=== PATIENT | female | born 1945 | race Caucasian/White ===

== ENCOUNTER 2018-10-20 12:02 | Emergency (ER) | payer MEDICARE, OTHER ==
[~2018-10-20] VITALS: Ht 162.6 cm; Wt 81.7 kg
[~2018-10-20 12:02] MED LIST: ATOR10 PO; Adult Low Dose81 MG PO; CHOLESTERAL MED; CLIN300 PO; Furosemide20 MG PO; HTN MED; HYDACE5 PO; IBUP600 PO; IBUP800 PO; LISHYD2025 PO; LORA.5; LORA10; OMEP20ER; POTCHL20ER PO; PRED20 PO; Pravastatin Sod40 MG PO; SERT25; Tussionex Penn480 ML PO; Ventolin/Prove6.7 GM INH; ZOLP10; ZOLP5 PO; Zithromax250 MG PO
[2018-10-20] MEDS ORDERED: Roxicodone5 MG PO (14:12)
== END 2018-10-20 14:43 | disposition home or self-care (01) ==
LOC: ER 12:02
DX: S00.83XA Contusion of other part of head, initial encounter (principal); S70.01XA Contusion of right hip, initial encounter; S40.021A Contusion of right upper arm, initial encounter; I10 Essential (primary) hypertension; E78.5 Hyperlipidemia, unspecified; W22.8XXA Striking against or struck by other objects, initial encounter
CPT/HCPCS: 73502; 99283-25

== ENCOUNTER 2021-12-19 09:02 | Inpatient (IN) | payer MEDICARE, OTHER ==
[~2021-12-19] VITALS: Ht 165.1 cm; Wt 87.0 kg
[~2021-12-19 09:02] MED LIST changes: +Roxicodone5 MG PO
[2021-12-19 09:26] LABS: BASOPHILS ABSOLUTE AUTO 0.09 K/mm3 (0.00-0.23); BASOPHILS PERCENT AUTO 1 % (0-2); EOSINOPHILS ABSOLUTE AUTO 0.06 K/mm3 (0.00-0.68); EOSINOPHILS PERCENT AUTO 1 % (0-6); Hematocrit 46.3 % (33.0-51.0); Hemoglobin 16.4 g/dL (11.5-16.0); IMMATURE GRAN ABSOLUTE AUTO 0.04 K/mm3 (0.00-0.10); IMMATURE GRAN PERCENT AUTO 1 % (0-1); LYMPHOCYTES ABSOLUTE AUTO 1.25 K/mm3 (0.84-5.20); LYMPHOCYTES PERCENT AUTO 15 % (21-46); MONOCYTES ABSOLUTE AUTO 0.48 K/mm3 (0.16-1.47); MONOCYTES PERCENT AUTO 6 % (4-13); Mean Corpuscular HGB 34.8 pg (26.0-34.0); Mean Corpuscular HGB Conc 35.4 g/dL (31.5-36.5); Mean Corpuscular Volume 98 fL (80-100); Mean Platelet Volume 10.7 fL (9.1-12.4); NEUTROPHILS PERCENT AUTO 77 % (41-73); Platelet Count 198 K/mm3 (150-400); RDW Standard Deviation 43.6 fL (35.1-46.3); Red Blood Cell Count 4.71 M/mm3 (3.80-5.20); White Blood Cell Count 8.32 K/mm3 (4.00-11.30)
[2021-12-19 09:36] LABS: Alanine Aminotransfer (ALT/SGP 44 U/L (12-78); Albumin, Blood 4.4 g/dL (3.4-5.0); Albumin/Globulin Ratio 1.1 (0.8-1.8); Alk Phos 101 U/L (50-136); Anion Gap 10 mmol/L (6-16); Aspartate Aminotrans (AST/SGOT 102 U/L (12-37); Bilirubin, Total 0.8 mg/dL (0.1-1.0); Blood Urea Nitrogen 12 mg/dL (8-24); Bun/Creatinine Ratio 16.2 (12.0-20.0); CHOL/HDL RATIO 2.6; CO2, Blood 24 mmol/L (21-32); Calcium, Blood 10.2 mg/dL (8.5-10.1); Chloride, Blood 105 mmol/L (98-108); Cholesterol 277 mg/dL (50-200); Creatinine, Blood 0.74 mg/dL (0.40-1.00); Globulin, Blood 4.1 g/dL (2.2-4.0); Glomerular Filtration Rate 84 (60-); Glucose, Blood 114 mg/dL (70-99); HDL Cholesterol 107 mg/dL (>39); LDL/HDL RATIO 1.4; Low Density Lipoprotein Chol 153 mg/dL (0-110); Magnesium, Blood 1.5 mg/dL (1.6-2.4); Potassium, Blood 3.6 mmol/L (3.5-5.5); Sodium, Blood 139 mmol/L (136-145); Total Protein, Blood 8.5 g/dL (6.4-8.2); Triglycerides 87 mg/dL (30-160); Very Low Density Lipoprot Chol 17 mg/dL (6-32)
[2021-12-19] MEDS ORDERED: PILO5 PO (10:06)
[2021-12-19] MEDS ORDERED: POTA8 PO (10:07)
--- NOTE | 2021-12-19 13:51 | NUR ---
PT ARRIVED TO ICU BED 2 @ 1125, DENIES ANY PAIN AT ALL. RIGHT GROIN SITE WITH SMALL SQUARE SOAKED UNDER TRANSPARENT DRESSING, LEAKING INTO FOLD, PRESSURE HELD, DRESSING CHANGED AFTER 10 MINUTES OF PRESSURE HELD. RIGHT WRIST WITH TR BAND IN PLACE, 14ML, SITE C/D/I. PT REQUESTS SOME ICE CREAM, SHERBET GIVEN. IN TO VISIT, PT ASKS TO TAKE A NAP. MEDICATIONS, EKG AND LAB ORDERED, PT NOT ABLE TO REST. AT THE 2 HOUR BUFFY PT'S HEAD IS ELEVATED 15 DEGREES PER ORDERS. ADMISSION COMPLETED WITH ASSISTANCE OF PATIENT. CONTINUES WITHOUT PAIN AT THIS TIME. RIGHT AC PIV WITH MAGNESIUM INFUSING PER ORDERS.
--- NOTE | 2021-12-19 16:11 | NUR ---
GROIN SITE DRESSING CHANGED AGAIN PER REQUEST BY . THE SANDBAG HAS BEEN IN PLACE FOR ABOUT 1 HOUR. PT DENIES ANY PAIN OR TENDERNESS AT SITE, NO HEMATOMA OR SWELLING NOTED. RIGHT WRIST WITH TR BAND, AIR REMOVED OVER THE LAST 2 HOURS, SITE C/D/I. PT CONTINUES TO DENY ANY CHEST PAIN. MAGNESIUM CONT TO INFUSE.
--- NOTE | 2021-12-19 16:47 | NUR ---
TR BAND REMOVED AT 1630, WRIST SITE, CLEAN DRY AND INTACT. OPSITE DRESSING APPLIED. RIGHT GROIN SITE CONTINUES TO OOZE, AFTER 1600 DRESSING CHANGE. PT USED BEDPAN, LARGE VOID OVERFILLED BEDPAN, UNMEASURED. ZACHERY GARBER TO HOLD MANUAL PRESSURE FOR CONTINUED OOZING. PT REMAINS PAIN FREE.
--- NOTE | 2021-12-19 17:32 | NUR ---
MADE ROUNDS WHILE JCARLOS WAS HOLDING PRESSURE. HE MAINTAINS THAT PT IS ABLE TO BE TRANSFERRED TO PCU ON TELE. SHE CONTINUES TO BE WITHOUT PAIN AND IS LOOKING FORWARD TO BEING ABLE TO STAND UP IN THE ROOM AND MOVE INDEPENDENTLY. HAS RETURNED WITH SOME OF HER BELONGINGS, (PHONE, GLASSES, EYE DROPS, AND GOWN). MAGNESIUM CONTINUES INFUSING.
[2021-12-20 03:32] LABS: BASOPHILS ABSOLUTE AUTO 0.07 K/mm3 (0.00-0.23); BASOPHILS PERCENT AUTO 1 % (0-2); EOSINOPHILS ABSOLUTE AUTO 0.22 K/mm3 (0.00-0.68); EOSINOPHILS PERCENT AUTO 3 % (0-6); Hematocrit 41.1 % (33.0-51.0); Hemoglobin 14.8 g/dL (11.5-16.0); IMMATURE GRAN ABSOLUTE AUTO 0.04 K/mm3 (0.00-0.10); IMMATURE GRAN PERCENT AUTO 1 % (0-1); LYMPHOCYTES ABSOLUTE AUTO 0.94 K/mm3 (0.84-5.20); LYMPHOCYTES PERCENT AUTO 11 % (21-46); MONOCYTES ABSOLUTE AUTO 0.89 K/mm3 (0.16-1.47); MONOCYTES PERCENT AUTO 10 % (4-13); Mean Corpuscular HGB 34.6 pg (26.0-34.0); Mean Corpuscular Volume 96 fL (80-100); NEUTROPHILS ABSOLUTE AUTO 6.67 K/mm3 (1.96-9.15); NEUTROPHILS PERCENT AUTO 76 % (41-73); RDW Coefficient Variation 12.2 % (11.7-14.2); RDW Standard Deviation 42.6 fL (35.1-46.3); Red Blood Cell Count 4.28 M/mm3 (3.80-5.20); White Blood Cell Count 8.83 K/mm3 (4.00-11.30)
[2021-12-20 03:35] LABS: Mean Platelet Volume 10.7 fL (9.1-12.4); Platelet Count 145 K/mm3 (150-400)
[2021-12-20 03:45] LABS: Bun/Creatinine Ratio 17.4 (12.0-20.0); Calcium, Blood 8.9 mg/dL (8.5-10.1); Creatinine, Blood 0.63 mg/dL (0.40-1.00); Potassium, Blood 3.6 mmol/L (3.5-5.5)
--- NOTE | 2021-12-20 05:09 | NUR ---
SHIFT SUMMARY PATIENT IS ALERT AND ORIENTED X4. 02 SATS >95% ON RA. HR SR 70s, BP STABLE. DENIES CP/PRESSURE THROUGH THE NIGHT. RIGHT RADIAL SITE WITH SCANT AMOUNT OF BLOOD, TEGADERM AND ARM BOARD IN PLACE, NO HEMATOMA. RIGHT GROIN WITH CORAZON DRESSING IN PLACE, SOME BLLEDING, OUTLINED AND UNCHANGED FOR LAST 6 HOURS. NO HEMATOMA AROUND SITE. UP TO TOILET, SBA. REPOSITIONS SELF IN BED. CALL LIGHT IN REACH.
--- NOTE | 2021-12-20 09:44 | NUR ---
ASSUMED CARE OF XIN AT 0700, UPON VIEWING OF THE RIGHT GROIN SITE, NO EVIDENCE OF LEAKING PAST THE DRESSING, SLIGHT OOZING CONTINUES. THE RIGHT WRIST IS C/D/I, ARM BOARD IN PLACE TO REMIND TO NOT LIFT ANYTHING WITH THAT WRIST. SHE CONTINUES TO DENY ANY CHEST PAIN OR DISCOMFORT, BREATHING IS EASY AND NON LABORED. BP REMAINS SLIGHTLY ELEVATED, AM MEDS GIVEN INCLUDING BLOOD PRESSURE MEDS. PT REALLY WOULD LIKE TO GO HOME TODAY. IN TO VISIT.
--- NOTE | 2021-12-20 14:31 | NUR ---
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 PT HAS BEEN INDEPENDENT IN ROOM, WITHOUT ANY PAIN. NO ECTOPY NOTED.
--- NOTE | 2021-12-20 15:34 | NUR ---
ECHO COMPLETED AND PT SAID SHE IS READY FOR A NAP, SHE IS STILL HOPING TO GO HOME. FEELS LIKE SHE HASN'T SLEPT MUCH. OTHERWISE, NO COMPLAINTS.
--- NOTE | 2021-12-20 15:57 | NUR ---
HAS DECIDED TO LET PATIENT BE DISCHARGED. SHE IS VERY HAPPY ABOUT THAT. WILL GET THE PAPERWORK COMPLETED.
[2021-12-20] MEDS ORDERED: ATOR80 PO (16:36)
[2021-12-20] MEDS ORDERED: ASPI81CH PO (16:36)
[2021-12-20] MEDS ORDERED: Prinivil10 MG PO (16:37)
[2021-12-20] MEDS ORDERED: CLOP75 PO (16:37)
[2021-12-20] MEDS ORDERED: METO50 PO (16:38)
[2021-12-20] MEDS ORDERED: MAGNESIUM OXID500 MG PO (16:38)
--- NOTE | 2021-12-20 17:04 | NUR ---
PT VERY EAGER FOR DISCHARGE. SHE WAS DRESSED AND STANDING AT THE DESK AWAITING HER PAPERWORK WHEN HER ARRIVED. SHE WAS GIVEN HER PAPERWORK TO READ THROUGH PRESCRIPTIONS WERE CALLED TO JUAN C PEREIRA. ARRIVED AND SHE ASKED HIM TO GET THE CAR, SHE TOOK THE WHEELCHAIR AND WAS DISCHARGED TO THE CARE OF HER , WHO WAS DRIVING AT 1700.
--- NOTE | 2021-12-21 09:47 | NUR ---
PT CALLED AND STATED [facility] DID NOT HAVE RX'S TO RADIATION OFFICER. DISCHARGE MEDICATION RECONCILLIATION RE-PRINTED AND REFAXED TO [facility], [facility] CALLED AND CONFIRMED THAT THEY RECEIVED THE RX'S AND WILL HAVE THEM READY FOR THE PT WITHIN THE HOUR. PT CALLED BACK AND NOTIFIED THAT RX'S WILL BE READY WITHIN THE HOUR AT [facility].
== END 2021-12-20 17:00 | disposition home or self-care (01) | DRG 247 ==
LOC: ER 09:02 → ICUE 09:10 → ICUW 09:10 → ICUE 09:41
PROVIDERS: Emergency Medicine; ADMIT Internal Medicine Cardiovascular Disease
PROC: 027034Z Dilation of Coronary Artery, One Artery with Drug-eluting Intraluminal Device, Percutaneous Approach (ICD-10-PCS; principal; 2021-12-19)
PROC: B2111ZZ Fluoroscopy of Multiple Coronary Arteries using Low Osmolar Contrast (ICD-10-PCS; 2021-12-19)
PROC: B24BZZ3 Ultrasonography of Heart with Aorta, Intravascular (ICD-10-PCS; 2021-12-19)
PROC: 4A023N7 Measurement of Cardiac Sampling and Pressure, Left Heart, Percutaneous Approach (ICD-10-PCS; 2021-12-19)
PROC: B2151ZZ Fluoroscopy of Left Heart using Low Osmolar Contrast (ICD-10-PCS; 2021-12-19)
DX: I21.19 ST elevation (STEMI) myocardial infarction involving other coronary artery of inferior wall (principal); I10 Essential (primary) hypertension; E78.5 Hyperlipidemia, unspecified; G89.29 Other chronic pain; I71.2 Thoracic aortic aneurysm, without rupture; E83.42 Hypomagnesemia; F10.20 Alcohol dependence, uncomplicated; M54.50 Low back pain, unspecified; Z85.3 Personal history of malignant neoplasm of breast; Z90.12 Acquired absence of left breast and nipple; Z98.49 Cataract extraction status, unspecified eye; Z88.0 Allergy status to penicillin; Z88.6 Allergy status to analgesic agent; Z79.82 Long term (current) use of aspirin; Z79.899 Other long term (current) drug therapy
CPT/HCPCS: 36415; 76937; 80048; 80053; 80061; 83735; 84484; 85025; 85347; 86850; 86900; 86901; 93005; 93010; 93458; 96374; 99152; 99153; 99291-25; A9270; C1725; C1760; C1769; C1874; C1887; C1894; C8929; C9606; J1644; J2250; J3010; J3475; J7030; J7040; Q9957; Q9967

== ENCOUNTER 2021-12-29 15:48 | Emergency (ER) | payer MEDICARE, OTHER ==
[~2021-12-29] VITALS: Ht 165.1 cm; Wt 81.7 kg
[~2021-12-29 15:48] MED LIST changes: +ASPI81CH PO; +ATOR80 PO; +CLOP75 PO; +MAGNESIUM OXID500 MG PO; +METO50 PO; +PILO5 PO; +POTA8 PO; +Prinivil10 MG PO
== END 2021-12-29 18:40 | disposition home or self-care (01) ==
LOC: ER 15:48
DX: R53.1 Weakness (principal); M54.9 Dorsalgia, unspecified; R20.2 Paresthesia of skin; W18.39XA Other fall on same level, initial encounter; I10 Essential (primary) hypertension; E78.5 Hyperlipidemia, unspecified; I25.2 Old myocardial infarction; Z95.5 Presence of coronary angioplasty implant and graft; Z88.0 Allergy status to penicillin; Z88.5 Allergy status to narcotic agent
CPT/HCPCS: 72100; 99284-25

== ENCOUNTER 2022-02-14 09:53 | Day surgery (SDC) | payer MEDICARE, OTHER ==
[~2022-02-14] VITALS: Ht 165.1 cm; Wt 77.4 kg
--- NOTE | 2022-02-14 12:14 | NUR ---
02/14/22 1214 LISANDRA HEARD PT C/O 12/22 PAIN WHEN MOVING FROM BED TO WALKER. PT WANTED A WC OUT TO CAR. PT WAS AT BASELINE PAIN AT [place].
== END 2022-02-14 12:12 | disposition home or self-care (01) ==
LOC: ORSCSDS 09:53
PROVIDERS: Anesthesiology
PROC: 3E0R33Z Introduction of Anti-inflammatory into Spinal Canal, Percutaneous Approach (ICD-10-PCS; principal; 2022-02-14 11:00)
DX: M96.1 Postlaminectomy syndrome, not elsewhere classified (principal); M54.16 Radiculopathy, lumbar region; M54.50 Low back pain, unspecified; M48.061 Spinal stenosis, lumbar region without neurogenic claudication; I10 Essential (primary) hypertension; E78.00 Pure hypercholesterolemia, unspecified; I25.10 Atherosclerotic heart disease of native coronary artery without angina pectoris; I25.2 Old myocardial infarction; Z79.01 Long term (current) use of anticoagulants; Z79.82 Long term (current) use of aspirin; Z79.899 Other long term (current) drug therapy
CPT/HCPCS: J1040; J2001; J2704

== ENCOUNTER 2022-03-25 10:14 | Day surgery (SDC) | payer MEDICARE, OTHER ==
[~2022-03-25] VITALS: Ht 165.1 cm; Wt 76.6 kg
== END 2022-03-25 11:11 | disposition home or self-care (01) ==
LOC: ORSCSDS 10:14
PROVIDERS: Anesthesiology
PROC: 3E0R33Z Introduction of Anti-inflammatory into Spinal Canal, Percutaneous Approach (ICD-10-PCS; principal; 2022-03-25 11:15)
DX: M96.1 Postlaminectomy syndrome, not elsewhere classified (principal); M54.16 Radiculopathy, lumbar region; I10 Essential (primary) hypertension; E78.00 Pure hypercholesterolemia, unspecified; I25.10 Atherosclerotic heart disease of native coronary artery without angina pectoris; Z79.82 Long term (current) use of aspirin; Z79.899 Other long term (current) drug therapy
CPT/HCPCS: J1040

== ENCOUNTER 2022-07-30 09:16 | Emergency (ER) | payer MEDICARE, OTHER ==
[~2022-07-30] VITALS: Ht 165.1 cm; Wt 72.6 kg
[2022-07-30] MEDS ORDERED: CYCL10 PO (09:55)
[2022-07-30] MEDS ORDERED: OXAYDO5 M1 PO (09:58)
[2022-07-30 10:18] LABS: BASOPHILS ABSOLUTE AUTO 0.04 K/mm3 (0.00-0.23); BASOPHILS PERCENT AUTO 1 % (0-2); EOSINOPHILS ABSOLUTE AUTO 0.02 K/mm3 (0.00-0.68); EOSINOPHILS PERCENT AUTO 0 % (0-6); Hematocrit 26.5 % (33.0-51.0); Hemoglobin 8.8 g/dL (11.5-16.0); IMMATURE GRAN ABSOLUTE AUTO 0.03 K/mm3 (0.00-0.10); IMMATURE GRAN PERCENT AUTO 0 % (0-1); LYMPHOCYTES PERCENT AUTO 10 % (21-46); MONOCYTES ABSOLUTE AUTO 0.98 K/mm3 (0.16-1.47); MONOCYTES PERCENT AUTO 11 % (4-13); Mean Corpuscular HGB 35.2 pg (26.0-34.0); Mean Corpuscular HGB Conc 33.2 g/dL (31.5-36.5); Mean Corpuscular Volume 106 fL (80-100); Mean Platelet Volume 10.1 fL (9.1-12.4); NEUTROPHILS ABSOLUTE AUTO 6.68 K/mm3 (1.96-9.15); NEUTROPHILS PERCENT AUTO 77 % (41-73); Platelet Count 188 K/mm3 (150-400); RDW Coefficient Variation 11.9 % (11.7-14.2); RDW Standard Deviation 45.8 fL (35.1-46.3); White Blood Cell Count 8.65 K/mm3 (4.00-11.30)
[2022-07-30 10:37] LABS: Albumin, Blood 2.8 g/dL (3.4-5.0); Albumin/Globulin Ratio 0.7 (0.8-1.8); Bilirubin, Total 1.2 mg/dL (0.1-1.0); Bun/Creatinine Ratio 16.9 (12.0-20.0); Calcium, Blood 9.8 mg/dL (8.5-10.1); Creatinine, Blood 0.53 mg/dL (0.40-1.00); Globulin, Blood 3.8 g/dL (2.2-4.0); Potassium, Blood 3.3 mmol/L (3.5-5.5); Total Protein, Blood 6.6 g/dL (6.4-8.2)
[2022-07-30] MEDS ORDERED: NIAC500 PO (10:41)
[2022-07-30] MEDS ORDERED: OMEP20ER PO (10:41)
[2022-07-30] MEDS ORDERED: Acetaminophen650 M1 PO (10:41)
[2022-07-30] MEDS ORDERED: Acerola C500 MG PO (10:42)
[2022-07-30] MEDS ORDERED: ZYRTEC10 M2 PO (10:43)
[2022-07-30 12:52] LABS: Influenza A, PCR NEGATIVE (NEGATIVE); Influenza B, PCR NEGATIVE (NEGATIVE); Resp Syncytial Virus, PCR NEGATIVE (NEGATIVE); SARS-Cov-2 (COVID-19) PCR, MMC NEGATIVE (NEGATIVE)
== END 2022-07-31 17:22 ==
LOC: ER 09:16
PROVIDERS: Emergency Medicine
DX: G89.18 Other acute postprocedural pain (principal); I10 Essential (primary) hypertension; E78.5 Hyperlipidemia, unspecified; I25.2 Old myocardial infarction; Z88.0 Allergy status to penicillin; Z88.5 Allergy status to narcotic agent; Z79.82 Long term (current) use of aspirin; Z79.899 Other long term (current) drug therapy; Z20.822 Contact with and (suspected) exposure to COVID-19
CPT/HCPCS: 0241U; 36415; 72100; 80053; 85025; 97162; A9270; J1170; J2405

== ENCOUNTER 2022-08-14 11:12 | Emergency (ER) | payer MEDICARE, OTHER ==
[~2022-08-14] VITALS: Ht 165.1 cm; Wt 72.6 kg
[~2022-08-14 11:12] MED LIST changes: +Acerola C500 MG PO; +Acetaminophen650 M1 PO; +CYCL10 PO; +NIAC500 PO; +OMEP20ER PO; +OXAYDO5 M1 PO; +ZYRTEC10 M2 PO
[2022-08-14] MEDS ORDERED: SULFAMETHOXAZO1 EAC1 PO (11:34)
[2022-08-14] MEDS ORDERED: BISA10S (11:34)
[2022-08-14] MEDS ORDERED: Colace100 MG PO (11:35)
[2022-08-14 13:21] LABS: BASOPHILS ABSOLUTE AUTO 0.14 K/mm3 (0.00-0.23); BASOPHILS PERCENT AUTO 1 % (0-2); EOSINOPHILS ABSOLUTE AUTO 0.42 K/mm3 (0.00-0.68); EOSINOPHILS PERCENT AUTO 4 % (0-6); Hematocrit 32.1 % (33.0-51.0); Hemoglobin 10.3 g/dL (11.5-16.0); IMMATURE GRAN ABSOLUTE AUTO 0.07 K/mm3 (0.00-0.10); IMMATURE GRAN PERCENT AUTO 1 % (0-1); LYMPHOCYTES ABSOLUTE AUTO 1.33 K/mm3 (0.84-5.20); LYMPHOCYTES PERCENT AUTO 11 % (21-46); MONOCYTES ABSOLUTE AUTO 0.88 K/mm3 (0.16-1.47); MONOCYTES PERCENT AUTO 8 % (4-13); Mean Corpuscular HGB 32.7 pg (26.0-34.0); Mean Corpuscular HGB Conc 32.1 g/dL (31.5-36.5); Mean Corpuscular Volume 102 fL (80-100); Mean Platelet Volume 9.2 fL (9.1-12.4); NEUTROPHILS ABSOLUTE AUTO 8.88 K/mm3 (1.96-9.15); NEUTROPHILS PERCENT AUTO 76 % (41-73); Platelet Count 544 K/mm3 (150-400); RDW Coefficient Variation 13.2 % (11.7-14.2); RDW Standard Deviation 49.9 fL (35.1-46.3); Red Blood Cell Count 3.15 M/mm3 (3.80-5.20); White Blood Cell Count 11.72 K/mm3 (4.00-11.30)
[2022-08-14 13:51] LABS: Albumin, Blood 3.2 g/dL (3.4-5.0); Albumin/Globulin Ratio 0.8 (0.8-1.8); Bilirubin, Total 0.4 mg/dL (0.1-1.0); Bun/Creatinine Ratio 6.9 (12.0-20.0); Calcium, Blood 10.2 mg/dL (8.5-10.1); Creatinine, Blood 0.73 mg/dL (0.40-1.00); Globulin, Blood 4.1 g/dL (2.2-4.0); Potassium, Blood 4.3 mmol/L (3.5-5.5); Total Protein, Blood 7.3 g/dL (6.4-8.2)
== END 2022-08-14 15:43 | disposition home or self-care (01) ==
LOC: ER 11:12
PROVIDERS: Emergency Medicine
DX: M25.551 Pain in right hip (principal); M25.552 Pain in left hip; L76.34 Postprocedural seroma of skin and subcutaneous tissue following other procedure; N39.0 Urinary tract infection, site not specified; I10 Essential (primary) hypertension; I25.2 Old myocardial infarction; Z79.82 Long term (current) use of aspirin; Z79.899 Other long term (current) drug therapy
CPT/HCPCS: 10160; 36415; 72128; 72131; 80053; 85025; 99284-25

== ENCOUNTER 2022-09-05 07:07 | Emergency (ER) | payer MEDICARE, OTHER ==
[~2022-09-05] VITALS: Ht 165.1 cm; Wt 65.8 kg
[~2022-09-05 07:07] MED LIST changes: +BISA10S; +Colace100 MG PO; +SULFAMETHOXAZO1 EAC1 PO
[2022-09-05 07:46] LABS: BASOPHILS ABSOLUTE AUTO 0.08 K/mm3 (0.00-0.23); BASOPHILS PERCENT AUTO 1 % (0-2); EOSINOPHILS ABSOLUTE AUTO 0.05 K/mm3 (0.00-0.68); EOSINOPHILS PERCENT AUTO 0 % (0-6); Hematocrit 36.7 % (33.0-51.0); Hemoglobin 11.9 g/dL (11.5-16.0); IMMATURE GRAN ABSOLUTE AUTO 0.03 K/mm3 (0.00-0.10); IMMATURE GRAN PERCENT AUTO 0 % (0-1); LYMPHOCYTES PERCENT AUTO 18 % (21-46); MONOCYTES ABSOLUTE AUTO 1.09 K/mm3 (0.16-1.47); MONOCYTES PERCENT AUTO 9 % (4-13); Mean Corpuscular HGB 31.6 pg (26.0-34.0); Mean Corpuscular HGB Conc 32.4 g/dL (31.5-36.5); Mean Corpuscular Volume 97 fL (80-100); Mean Platelet Volume 10.3 fL (9.1-12.4); NEUTROPHILS ABSOLUTE AUTO 9.32 K/mm3 (1.96-9.15); NEUTROPHILS PERCENT AUTO 72 % (41-73); Platelet Count 319 K/mm3 (150-400); RDW Coefficient Variation 14.3 % (11.7-14.2); RDW Standard Deviation 51.1 fL (35.1-46.3); Red Blood Cell Count 3.77 M/mm3 (3.80-5.20); White Blood Cell Count 12.87 K/mm3 (4.00-11.30)
[2022-09-05 08:03] LABS: Albumin, Blood 3.3 g/dL (3.4-5.0); Albumin/Globulin Ratio 0.7 (0.8-1.8); Bun/Creatinine Ratio 38.5 (12.0-20.0); Calcium, Blood 11.7 mg/dL (8.5-10.1); Creatinine, Blood 0.73 mg/dL (0.40-1.00); Globulin, Blood 4.5 g/dL (2.2-4.0); Potassium, Blood 4.2 mmol/L (3.5-5.5); Total Protein, Blood 7.8 g/dL (6.4-8.2)
[2022-09-05 09:51] LABS: Base Excess Venous -0.2 mmol/L; Bicarbonate Venous 23.9 mmol/L (24.0-30.0); PCO2 Venous 43.7 mmHg (38-42); pH Blood Venous 7.37 (7.34-7.37)
[2022-09-05 10:06] LABS: Source, Urine Fem Cath
[2022-09-05 10:12] LABS: Appearance, Urine Clear (Clear); Bilirubin, Urine Neg (Neg); Blood, Urine 1+ (Neg); Color, Urine Yellow (P-Yellow); Glucose Qualitative, Urine Neg (Neg); Ketones, Urine 2+ (Neg); Leukocyte Esterase, Urine 2+ (Neg); Nitrite, Urine Pos (Neg); Protein, Urine 2+ (Neg); Urobilinogen, Urine NORM (Normal)
[2022-09-05 10:35] LABS: Bacteria Many /hpf; Mucus Mod (0-Heavy); Squamous Epithelial Cells Many /hpf (Few)
[2022-09-05] MEDS ORDERED: MORP20L SL (13:31)
[2022-09-05] MEDS ORDERED: DIPHEN12.5 MG/7 PO (13:31)
[2022-09-05] MEDS ORDERED: LORA2L PO (13:31)
[2022-09-05] MEDS ORDERED: PROM12.5S PR (13:31)
[2022-09-05 15:00] VITALS: BP 112/96
--- NOTE | 2022-09-05 20:35 | NUR ---
pt contrated attemtps to answer question. occasionally moans. history of significant pain from fractures. plan is back to facility with hospice. pt medicated with morphine per MD and premedicated with benadry due to some itching. previous medication not helping control pain. updated [facility] of plan of care.
== END 2022-09-05 15:25 | disposition home or self-care (01) ==
LOC: ER 07:07
PROVIDERS: Student in an Organized Health Care Education/Training Program
DX: A41.9 Sepsis, unspecified organism (principal); N39.0 Urinary tract infection, site not specified; R41.82 Altered mental status, unspecified; R62.7 Adult failure to thrive; Z68.45 Body mass index [BMI] 70 or greater, adult; Z51.5 Encounter for palliative care; Z88.0 Allergy status to penicillin; Z88.5 Allergy status to narcotic agent; Z79.899 Other long term (current) drug therapy; Z79.82 Long term (current) use of aspirin; I10 Essential (primary) hypertension; E78.5 Hyperlipidemia, unspecified; I25.2 Old myocardial infarction
CPT/HCPCS: 36415; 70450; 71045; 80053; 81001; 82330; 82803; 83605; 83735; 84145; 85025; 87077; 87086; 87186; 93005; 93010; 96361; 96374; 96375; 96376; 99285-25; A9270; J1200; J3010; J7030; P9612